=== PATIENT | male | born 1995 | race Two or more races ===

== ENCOUNTER 2019-08-30 19:54 | Emergency (ER) | payer SELFPAY ==
[~2019-08-30] VITALS: Ht 170.2 cm; Wt 81.6 kg
[~2019-08-30 19:54] MED LIST: HYDROmorphone HCL 2 MG/ML VL ONE; ONDANSETRON HCL 4 MG/2 ML VIAL ONE
[2019-08-30] MEDS ORDERED: cefTRIAXone 1GM/50ML D5W 50 ML IV ONE ×2 (19:56→20:15)
[2019-08-30] MEDS ORDERED: HYDROmorphone HCL 2 MG/ML VL IV ONE (20:15)
[2019-08-30] MEDS ORDERED: SODIUM CHLORIDE 0.9% 2,000 ML IV ONE (20:15)
[2019-08-30] MEDS ORDERED: TETANUS-DIPTH-ACEL PERTUSSIS 0.5ML SYRG IM ONE (20:15)
[2019-08-30] MEDS ORDERED: ONDANSETRON HCL 4 MG/2 ML VIAL IV ONE (20:15)
[2019-08-30 20:35] VITALS: BP 127/78
[2019-08-30 21:03] LABS: Urine Bacteria NONE SEEN /hpf (None Seen); Urine Blood Negative /uL (Negative); Urine Specific Gravity 1.002 (1.001-1.035); Urine WBC 1 /hpf (0 - 3)
== END 2019-08-30 20:43 | disposition short-term general hospital (02) ==
LOC: ER 19:58
DX: S71.112A Laceration without foreign body, left thigh, initial encounter (principal); S31.31XA Laceration without foreign body of scrotum and testes, initial encounter; W34.00XA Accidental discharge from unspecified firearms or gun, initial encounter; Y93.89 Activity, other specified; Y99.8 Other external cause status; Y92.89 Other specified places as the place of occurrence of the external cause
CPT/HCPCS: 81001; 96365; 96375; 99285; J0696; J1170; J2405; J7030

== ENCOUNTER 2020-05-11 20:18 | Emergency (ER) | payer OTHER ==
[~2020-05-11] VITALS: Ht 175.3 cm; Wt 72.6 kg
[2020-05-11 20:45] LABS: Basophils # (auto) 0.1 10 ^3/uL (0-0.2); Basophils % (auto) 1.1 % (0.0-2.0); Eosinophils # (auto) 0.5 10 ^3/uL (0-0.8); Eosinophils % (auto) 3.6 % (0.0-7.0); Hematocrit 45.5 % (41.0-53.0); Hemoglobin 14.6 g/dL (13.5-17.5); Lymphocytes # (auto) 5.8 10 ^3/uL (0.4-5.4); Lymphocytes % (auto) 43.8 % (10.0-50.0); Mean Corpuscular Hemoglobin 29.3 pg (28.0-32.0); Mean Corpuscular Hgb Conc. 32.1 g/dL (32.0-36.0); Mean Corpuscular Volume 91.5 fL (80.0-100.0); Monocytes % (auto) 7.8 % (0.0-12.0); Neutrophils # (auto) 5.8 10 ^3/uL (1.6-8.6); Neutrophils % (auto) 43.7 % (37.0-80.0); Nucleated Red Blood Cells % 0.1 %; Platelet Count (auto) 263 10^3/uL (140-450); Red Blood Cells 4.97 10^6/uL (4.5-5.90); Red Cell Distribution Width 13.4 % (11.8-14.3); White Blood Cell 13.2 10^3/uL (4.4-10.8)
[2020-05-11 21:01] LABS: Albumin 3.9 g/dL (3.4-5.0); Calcium 8.5 mg/dL (8.5-10.1); Potassium 3.4 mmol/L (3.5-5.1)
[2020-05-11 21:02] LABS: Salicylate < 1.7 mg/dL (2.8-20.0)
[2020-05-11 21:05] LABS: BUN/Creatinine Ratio 5.9; Bilirubin, Total 0.3 mg/dL (0.2-1.0); Total Protein 7.5 g/dL (6.4-8.2)
[2020-05-11 21:14] LABS: Acetaminophen < 2.0 ug/mL (10-30)
[2020-05-11 22:29] LABS: Urine WBC None Seen /hpf (0 - 3)
[2020-05-11] MEDS ORDERED: ONDANSETRON HCL 4 MG/2 ML VIAL IV ONE (22:45)
[2020-05-11 22:47] LABS: Urine Amorphous Crystal MOD /hpf (None Seen); Urine Bacteria NONE SEEN /hpf (None Seen); Urine Blood Negative /uL (Negative); Urine Hyaline Cast FEW /lpf (0 - 2); Urine Mucus FEW (None Seen); Urine Specific Gravity 1.022 (1.001-1.035)
[2020-05-11 22:52] LABS: Amphetamine Screen, Urine NEGATIVE (NEGATIVE); Barbiturate Scree,Urine NEGATIVE (NEGATIVE); Benzodiazephine Screen, Urine NEGATIVE (NEGATIVE); Cannabinoid Screen, Urine POSITIVE (NEGATIVE); Cocaine Screen, Urine NEGATIVE (NEGATIVE); Opiate Scree,Urine NEGATIVE (NEGATIVE); Phencyclidine Screen, Urine NEGATIVE (NEGATIVE)
[2020-05-11 23:00] VITALS: BP 126/95
== END 2020-05-11 23:34 | disposition home or self-care (01) ==
LOC: ER 20:19
DX: R41.82 Altered mental status, unspecified (principal); G92 Toxic encephalopathy; F19.10 Other psychoactive substance abuse, uncomplicated
CPT/HCPCS: 36415; 71045; 80053; 80307; 80320; 80329; 81001; 84484; 85025; 93005; 96374; 99285; J2405

== ENCOUNTER 2024-07-08 15:48 | Emergency (ER) | payer OTHER ==
[~2024-07-08] VITALS: Ht 172.7 cm; Wt 69.5 kg
[2024-07-08 17:01] LABS: Basophils # (auto) 0.1 10 ^3/uL (0-0.2); Eosinophils # (auto) 0 10 ^3/uL (0-0.8); Lymphocytes # (auto) 3.1 10 ^3/uL (0.4-5.4); Monocytes # (auto) 1.2 10 ^3/uL (0-1.3); Nucleated Red Blood Cells % 0.1 %; Red Cell Distribution Width 14.2 % (11.8-14.3)
[2024-07-08 17:03] LABS: Basophils % (auto) 0.2 % (0.0-2.0); Hematocrit 53.5 % (41.0-53.0); Hemoglobin 18.2 g/dL (13.5-17.5); Lymphocytes % (auto) 12.1 % (10.0-50.0); Mean Corpuscular Hgb Conc. 33.9 g/dL (32.0-36.0); Mean Corpuscular Volume 85.6 fL (80.0-100.0); Monocytes % (auto) 4.7 % (0.0-12.0); Neutrophils # (auto) 21.2 10 ^3/uL (1.6-8.6); Platelet Count (auto) 530 10^3/uL (140-450); Red Blood Cells 6.25 10^6/uL (4.5-5.90); White Blood Cell 25.6 10^3/uL (4.4-10.8)
[2024-07-08 17:19] LABS: Alanine Aminotransferase 30 U/L (7-40); Alkaline Phosphatase 104 U/L (46-116); Anion Gap 10 (5-15); Aspartate Aminotransferase 16 U/L (13-40); BUN/Creatinine Ratio 9.8 (10.0-20.0); Blood Urea Nitrogen 19 mg/dL (9-23); Calcium 11.1 mg/dL (8.7-10.4); Carbon Dioxide 26 mmol/L (20-31); Chloride 105 mmol/L (98-107); Glucose 222 mg/dL (74-106); Potassium 3.9 mmol/L (3.5-5.1); Sodium 141 mmol/L (136-145)
[2024-07-08 17:20] LABS: Albumin 5.6 g/dL (3.2-4.8); Bilirubin, Total 0.4 mg/dL (0.2-1.0); Total Protein 9.5 g/dL (5.7-8.2)
[2024-07-08] MEDS: ONDANSETRON ODT 4 MG TAB PO ONE (17:41)
--- NOTE | 2024-07-08 20:29 | DVH ---
CHEST RADIOGRAPH Indication:sob Technique: Single frontal view of the chest was obtained Comparison: CHEST PORTABLE on DOS: 05/11/20 FINDINGS: Lines and Tubes: None Lungs: No focal consolidation. Pleura: No effusion. No pneumothorax. Cardiomediastinal contours: Unremarkable Bones: No acute osseous abnormality. IMPRESSION: No acute cardiopulmonary disease.
[2024-07-08 20:56] LABS: Lactic Acid w/Reflex 2.4 mmol/L (0.4-2.0)
[2024-07-08 21:29] VITALS: BP 123/84; TEMP 98.1
[2024-07-08 21:32] VITALS: PULSE 109; RESP 20; O2SAT 96
[2024-07-08] MEDS: SODIUM CHLORIDE 0.9% 1,000 ML IV ONE (21:37)
[2024-07-08] MEDS ORDERED: cefTRIAXone 1GM/50ML D5W 50 ML IV ONE (22:00)
--- NOTE | 2024-07-08 22:41 | ED.PDOC ---
History of Present Illness HPI Comments 29-year-old male complaining of anxiety, nausea vomiting diarrhea, in the sweats. States he was going through opiate withdrawal. Says he uses fentanyl recreationally for the last three years. Last dose was yesterday. Nothing makes it better, nothing makes it worse. Denies any cough or congestion. Denies any chest pain. Chief Complaint: Withdrawal Time Seen by MD: 16:04 Reviewed Notes: Nurses Notes Allergies: Coded Allergies: NO KNOWN ALLERGIES (Unverified , 08/30/19) Information Source: Patient Mode of Arrival: Ambulatory Past Medical History PAST MEDICAL HISTORY: Pt Confused Surgical History: Pt Confused Family History Family History: Pt Confused Social History Smoker: Pt Confused Alcohol: Pt Confused Drugs: Pt Confused Lives In: Home, Pt Confused Constitutional: reports: chills, fatigue; denies: diaphoresis, fever, malaise, sweats, weakness, others EENTM: denies: blurred vision, double vision, ear bleeding, ear discharge, ear drainage, ear pain, ear ringing, eye pain, eye redness, hearing loss, mouth pain, mouth swelling, nasal discharge, nose bleeding, nose congestion, nose pain, photophobia, tearing, throat pain, throat swelling, voice changes, others Respiratory: denies: cough, hemoptysis, orthopnea, SOB at rest, shortness of breath, SOB with excertion, stridor, wheezing, others Cardiovascular: denies: chest pain, dizzy spells, diaphoresis, Dyspnea on exe rtion, edema, irregular heart beat, left arm pain, lightheadedness, palpitations, PND, syncope, others Gastrointestinal: reports: diarrhea, nausea, vomiting; denies: abdomen distended, abdominal pain, blood streaked bowels, constipated, dysphagia, difficulty swallowing, hematemesis, melena, poor appetite, poor fluid intake, rectal bleeding, rectal pain, others Genitourinary: denies: burning, dysuria, flank pain, frequency, hematuria, incontinence, penile discharge, penile sore, pain, testicle pain, testicle swelling, urgency, others Neurological: denies: dizziness, fainting, headache, left sided numbness, left sided weakness, numbness, paresthesia, pre-existing deficit, right sided numbness, right sided weakness, seizure, speech problems, tingling, tremors, weakness, others Musculoskeletal: denies: back pain, gout, joint pain, joint swelling, muscle pain, muscle stiffness, neck pain, others Integumetry: denies: bruises, change in color, change in hair/nails, dryness, laceration, lesions, lumps, rash, wounds, others Allergic/Immunocompromised: denies: Difficulty Healing, Frequent Infections, Hives, Itching, others Hematologic/Lymphatic: denies: anemia, blood clots, easy bleeding, easy bruising, swollen glands, others Physical Exam General Appearance: Moderate Distress, Normal HEENT: Normal ENT Inspection, Pharynx Normal, TMs Normal Neck: Full Range of Motion, Non-Tender, Normal, Normal Inspection Respiratory: Chest Non-Tender, Lungs Clear, No Accessory Muscle Use, No Respiratory Distress, Normal Breath Sounds Cardiovascular: No Edema, No JVD, No Murmur, No Gallop, Normal Peripheral Pulses, Regular Rate/Rhythm Breast Exam: Deferred Gastrointestinal: No Organomegaly, Non Tender, No Pulsatile Mass, Normal Bowel Sounds, Soft Genitalia: Deferred Pelvic: Deferred Rectal: Deferred Extremities: No calf tenderness, Normal capillary refill, Normal inspection, Normal range of motion, Non-tender, No pedal edema Musculoskeletal : Apperance: Normal Neurologic: Alert, promotional advertising assistant II-XII nml as Tested, No Motor Deficits, Normal Affect, Normal Mood, No Sensory Deficits Cerebellar Function: Normal Reflexes: Normal Skin: Dry, Normal Color, Warm Lymphatic: No Adenopathy Was a procedure done? Was a procedure done?: No Differential Dx Considerations may include: Opiate withdrawal, sepsis, gastroenteritis, appendicitis, X-Ray, Labs, Meds, VS Vital Signs Date Time Temp Pulse Resp B/P (MAP) Pulse Ox O2 Delivery O2 Flow Rate FiO2 07/08/24 21:32 109 20 96 Room Air* 0 21 07/08/24 21:29 98.1 109 20 123/84 (97) 96 98.1 07/08/24 17:41 98.3 105 22 142/88 (106) 96 98.3 07/08/24 16:09 98.4 97 19 136/104 (115) 98 Lab Test 07/08/24 21:44 07/08/24 19:52 07/08/24 16:45 Range/Units Lactic Acid Level 1.8 2.4 *H 0.4-2.0 mmol/L White Blood Count 25.6 H 4.4-10.8 10^3/uL Red Blood Count 6.25 H 4.5-5.90 10^6/uL Hemoglobin 18.2 H 13.5-17.5 g/dL Hematocrit 53.5 H 41.0-53.0 % Mean Corpuscular Volume 85.6 80.0-100.0 fL Mean Corpuscular Hemoglobin 29.0 28.0-32.0 pg Mean Corpuscular Hemoglobin Concent 33.9 32.0-36.0 g/dL Red Cell Distribution Width 14.2 11.8-14.3 % Platelet Count 530 H 140-450 10^3/uL Mean Platelet Volume 9.4 6.9-10.8 fL Neutrophils (%) (Auto) 83.0 H 37.0-80.0 % Lymphocytes (%) (Auto) 12.1 10.0-50.0 % Monocytes (%) (Auto) 4.7 0.0-12.0 % Eosinophils (%) (Auto) 0.0 0.0-7.0 % Basophils (%) (Auto) 0.2 0.0-2.0 % Neutrophils # (Auto) 21.2 H 1.6-8.6 10 ^3/uL Lymphocytes # (Auto) 3.1 0.4-5.4 10 ^3/uL Monocytes # (Auto) 1.2 0-1.3 10 ^3/uL Eosinophils # (Auto) 0 0-0.8 10 ^3/uL Basophils # (Auto) 0.1 0-0.2 10 ^3/uL Nucleated Red Blood Cells 0.1 % Sodium Level 141 136-145 mmol/L Potassium Level 3.9 3.5-5.1 mmol/L Chloride Level 105 98-107 mmol/L Carbon Dioxide Level 26 20-31 mmol/L Anion Gap 10 5-15 Blood Urea Nitrogen 19 9-23 mg/dL Creatinine 1.93 H 0.700-1.30 mg/dL Glomerular Filtration Rate Calc 48 >90 mL/min BUN/Creatinine Ratio 9.8 L 10.0-20.0 Serum Glucose 222 H 74-106 mg/dL Calcium Level 11.1 H 8.7-10.4 mg/dL Total Bilirubin 0.4 0.2-1.0 mg/dL Aspartate Amino Transferase (AST) 16 13-40 U/L Alanine Aminotransferase (ALT) 30 7-40 U/L Alkaline Phosphatase 104 46-116 U/L Total Protein 9.5 H 5.7-8.2 g/dL Albumin 5.6 H 3.2-4.8 g/dL Current Medications Medications (Trade) Dose Ordered Sig/Twila Route Start Time Stop Time Status Last Admin Ondansetron HCl (Zofran Po) 4 mg ONCE ONCE PO 07/08/24 16:15 07/08/24 16:16 DC 07/08/24 17:41 Sodium Chloride 1,000 ml @ 1,000 mls/hr Q1H ONCE IV 07/08/24 19:45 07/08/24 20:44 DC 07/08/24 21:37 X-Ray, Labs, Meds, VS Comment Spoke with Dr. Edward with [facility], recommend hospitalization for leukocytosis. Recommends CT abdomen and pelvis while they work on finding a bed for the patient When patient was being taken over to CT scan, patient refused CT scan and signed out AMA. Explained the risks and benefits to the patient which could lead to due to his infection patient was signed out and witnessed leaving ER. Time of 1ST Reevaluation: 22:41 Reevaluation 1ST: Unchanged Patient Education/Counseling: Diagnosis, Treatment Family Education/Counseling: Diagnosis, Treatment Departure 1 Departure Time of Disposition: 22:40 Impression: Primary Impression: Opiate withdrawal Additional Impression: Leukocytosis Disposition: LEFT AWOL/ELOPED Condition: Unstable Critical Care Note Critical Care Time?: No Stability Stability form required: No Heart Score Heart Score: Heart Score Response (Comments) Value History N/A 0 EKG N/A 0 Age N/A 0 Risk Factors N/A 0 Troponin N/A 0 Total 0 DUTCH CHAVEZ Jul 08, 2024 22:41
== END 2024-07-08 22:09 | disposition left against medical advice (07) ==
LOC: ER 15:48
DX: F11.23 Opioid dependence with withdrawal (principal); D72.829 Elevated white blood cell count, unspecified; F41.9 Anxiety disorder, unspecified; F17.200 Nicotine dependence, unspecified, uncomplicated; R41.0 Disorientation, unspecified
CPT/HCPCS: 36415; 71045; 80053; 83605; 85025; 96360; 99284; J7030; Q0162